=== PATIENT | male | born 1985 | race Caucasian/White ===

== ENCOUNTER 2018-12-20 21:16 | Emergency (ER) | payer OTHER ==
[~2018-12-20] VITALS: Ht 180.3 cm; Wt 99.8 kg
[2018-12-20 21:27] VITALS: BP 146/85
[2018-12-20] MEDS ORDERED: predniSONE 20 MG TABLET PO ONE (22:00)
[2018-12-20 22:10] LABS: INFLUENZA A PATIENT NEGATIVE (NEGATIVE); INFLUENZA B PATIENT NEGATIVE (NEGATIVE)
[2018-12-20] MEDS ORDERED: DIPH25CA58 PO (22:41)
[2018-12-20] MEDS ORDERED: HYDR-1179 PO (22:41)
[2018-12-20] MEDS ORDERED: ACET500T68 PO (22:41)
[2018-12-20] MEDS ORDERED: FLUT9.9S NS (22:41)
[2018-12-20] MEDS ORDERED: IBUP400T18 PO (22:41)
--- NOTE | 2018-12-21 09:22 | ED.ADGEN ---
Past History Past Medical History: No Pertinent History Past Surgical History: No Surgical History Alcohol Use: Occasionally Drug Use: None Adult General Chief Complaint Chief Complaint ".. I ve been sick for 5 days now....coughing, fever... runny nose... sore throat...... It tyson started with my kids... 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 Patient symptoms and has been present for 5 days. Patient states nothing that [id number] meds have helped him. Patient's son and daughter recently had similar presentation but their symptoms have resolved. Patient has not been overseas for more than a year. No recent travel. Patient is normally healthy. Patient up-to-date with vaccinations. Patient does smoke. Patient normally follows at [facility]. Review of Systems Review of Systems Constitutional: History of fever or chills [] Eyes: Denies change in visual acuity, redness, or eye pain [] HENT: History of nasal congestion and sore throat [] Respiratory: History of cough Cardiovascular: No additional information not addressed in HPI [] GI: Denies abdominal pain, nausea, vomiting, bloody stools or diarrhea [] : Denies dysuria or hematuria [] Musculoskeletal: Complaints of myalgia and arthralgia Integument: Denies rash or skin lesions [] Neurologic: Denies headache, focal weakness or sensory changes [] Endocrine: Denies polyuria or polydipsia [] All other systems were reviewed and found to be within normal limits, except as documented in this note. Family History Family History Son and daughter recently had similar presentation they are now better Current Medications Current Medications Current Medications Medications (Trade) Dose Ordered Sig/May Start Time Stop Time Status Last Admin Dose Admin Prednisone (Prednisone) 50 mg 1X ONCE 12/20/18 22:00 12/20/18 22:02 DC 12/20/18 21:39 50 MG See nursing for home meds Allergies Allergies Allergies Coded Allergies Type Severity Reaction Last Updated Verified shellfish derived Allergy Severe 12/20/18 Yes penicillin G Allergy Intermediate 12/20/18 Yes Physical Exam Physical Exam Constitutional: Well developed, well nourished, moderately acute distress, non- toxic appearance. [] HENT: Normocephalic, atraumatic, bilateral external ears normal, oropharynx moist, injected pharynx and postnasal drainage,, no oral exudates, nose swollen turbinates and rhinorrhea Eyes: PERRLA, EOMI, conjunctiva normal, no discharge. [] Neck: Normal range of motion, no tenderness, supple, no stridor. [] Cardiovascular:Heart rate regular rhythm, no murmur [] Lungs & Thorax: Bilateral breath sounds equal with few scattered wheezes on auscultation [] Abdomen: Bowel sounds normal, soft, no tenderness, no masses, no pulsatile masses. [] Skin: Warm, dry, no erythema, no rash. [] Back: No tenderness, no CVA tenderness. [] Extremities: No tenderness, no cyanosis, no clubbing, ROM intact, no edema. [] Neurologic: Alert and oriented X 3, normal motor function, normal sensory function, no focal deficits noted. [] Psychologic: Affect anxious,, judgement normal, mood normal. [] Current Patient Data Vital Signs Vital Signs Date Time Temp Pulse Resp B/P (MAP) Pulse Ox O2 Delivery O2 Flow Rate FiO2 12/20/18 21:27 99.1 100 18 97 Room Air Lab Results Laboratory Tests Test 12/20/18 21:41 Influenza Type A (Rapid) Negative (NEGATIVE) Influenza Type B (Rapid) Negative (NEGATIVE) Group A Streptococcus Rapid Negative (NEGATIVE) EKG EKG [] Radiology/Procedures Radiology/Procedures [] Course & Med Decision Making Course & Med Decision Making Pertinent Labs and Imaging studies reviewed. (See chart for details). Patient take Tylenol and ibuprofen as needed for discomfort and fever. Patient use Benadryl 25-50 mg 4 times a day. Patient push fluids. For marked discomfort may take Vicoprofen up 4 times a day. Follow-up with primary care. Return if any concerns. Use Flonase 2 sprays twice a day. Use nasal saline rinses. [] Final Impression Final Impression 1. Viral syndrome[] Dragon Disclaimer Dragon Disclaimer This electronic medical record was generated, in whole or in part, using a voice recognition dictation system. Dragon Disclaimer This chart was dictated in whole or in part using Voice Recognition software in a busy, high-work load, and often noisy Emergency Department environment. It may contain unintended and wholly unrecognized errors or omissions. Discharge Summary Visit Information Final Diagnosis Problems Medical Problems: (1) Viral syndrome Status: Acute Brief Hospital Course Allergies Allergies Coded Allergies Type Severity Reaction Last Updated Verified shellfish derived Allergy Severe 12/20/18 Yes penicillin G Allergy Intermediate 12/20/18 Yes Vital Signs Vital Signs Date Time Temp Pulse Resp B/P (MAP) Pulse Ox O2 Delivery O2 Flow Rate FiO2 12/20/18 21:27 99.1 100 18 97 Room Air Lab Results Laboratory Tests Test 12/20/18 21:41 Influenza Type A (Rapid) Negative (NEGATIVE) Influenza Type B (Rapid) Negative (NEGATIVE) Group A Streptococcus Rapid Negative (NEGATIVE) Brief Hospital Course Mr. De La Cruz is a 33 old male who presented with viral syndrome. Discharge Information Condition at Discharge: Improved, Stable Disposition/Orders: D/C to Home Dischare Medications Current Medications Prednisone (Prednisone) 50 mg 1X ONCE PO Last administered on 12/20/18at 21:39; Admin Dose 50 MG; Start 12/20/18 at 22:00; Stop 12/20/18 at 22:02; Status DC Active Scripts Active Acetaminophen 500 Mg Tablet 1,000 Mg PO QIDPRN PRN 90 Days Ibuprofen 400 Mg Tablet 400 Mg PO QIDPRN PRN Benadryl (Diphenhydramine Hcl) 25 Mg Capsule 50 Mg PO QIDPRN PRN 30 Days Flonase Allergy Relief (Fluticasone Propionate) 9.9 Ml [place].susp 2 Sprays NS TWICE A DAY 30 Days Hydrocodone-Ibuprofen 7.5-200 (Hydrocodone/Ibuprofen) 1 Each Tablet 1 Tab PO PRN Q6HRS PRN GRETCHEN SERNA MD Dec 21, 2018 09:22
== END 2018-12-20 22:44 | disposition home or self-care (01) ==
LOC: ER 21:16
DX: B34.9 Viral infection, unspecified (principal); Z88.0 Allergy status to penicillin; Z91.013 Allergy to seafood
CPT/HCPCS: 87070; 87804; 87880; 99283; J7512